=== PATIENT | male | born 1970 | race Caucasian/White ===

== ENCOUNTER 2020-12-25 09:27 | Outpatient (CLI) | payer OTHER, SELFPAY ==
[2020-12-26 12:54] LABS: COVID-19 RT-PCR UVMMC Result Negative (Negative)
== END 2020-12-25 09:28 | disposition home or self-care (01) ==
PROVIDERS: Visit Provider Nurse Practitioner Family
DX: Z20.822 Contact with and (suspected) exposure to COVID-19 (principal)
CPT/HCPCS: U0003